=== PATIENT | female | born 1960 ===

== ENCOUNTER 2020-04-07 13:53 | Outpatient (CLI) | payer OTHER ==
[~2020-04-07] VITALS: Ht 177.8 cm; Wt 97.1 kg
[2020-04-07] MEDS ORDERED: LEVOTHYROXINE25 MCG (16:56)
== END 2020-04-07 18:40 | disposition home or self-care (01) ==
LOC: OFIC 805 13:53
PROVIDERS: ATTEND Otolaryngology
DX: K21.0 Gastro-esophageal reflux disease with esophagitis (principal); R49.0 Dysphonia; M54.2 Cervicalgia

== ENCOUNTER 2020-05-04 11:54 | Outpatient (CLI) | payer OTHER ==
[~2020-05-04 11:54] MED LIST: LEVOTHYROXINE25 MCG
== END 2020-05-04 18:51 | disposition home or self-care (01) ==
LOC: OFIC 805 11:54
PROVIDERS: ATTEND Otolaryngology
DX: K21.9 Gastro-esophageal reflux disease without esophagitis (principal); R49.0 Dysphonia; R09.81 Nasal congestion; R09.82 Postnasal drip

== ENCOUNTER → 2020-07-08 | Outpatient (CLI) | payer OTHER | END | disposition home or self-care (01) | LOC: OFIC 805 09:45 | PROVIDERS: ATTEND Otolaryngology | DX: K21.9 Gastro-esophageal reflux disease without esophagitis (principal); K21.00 Gastro-esophageal reflux disease with esophagitis, without bleeding; R49.0 Dysphonia; R09.82 Postnasal drip; R09.81 Nasal congestion ==

== ENCOUNTER 2020-10-07 09:39 | Outpatient (CLI) | payer OTHER | END 2020-10-07 10:10 | disposition home or self-care (01) | LOC: OFIC 805 09:39 | PROVIDERS: ATTEND Otolaryngology | DX: K21.9 Gastro-esophageal reflux disease without esophagitis (principal); J30.89 Other allergic rhinitis ==

== ENCOUNTER 2020-11-02 08:58 | Outpatient (CLI) | payer OTHER | END 2020-11-02 11:03 | disposition home or self-care (01) | LOC: OFIC 805 08:58 | PROVIDERS: ATTEND Otolaryngology | DX: R09.82 Postnasal drip (principal); R09.81 Nasal congestion; K21.9 Gastro-esophageal reflux disease without esophagitis ==

== ENCOUNTER → 2020-12-15 08:00 | Outpatient (CLI) | payer OTHER | END | disposition home or self-care (01) | LOC: PPH VACUNA 08:00 | DX: Z23 Encounter for immunization (principal) ==